=== PATIENT | female | born 1995 | race Caucasian/White ===

== ENCOUNTER 2019-08-18 02:32 | Emergency (ER) | payer OTHER ==
[2019-08-18] MEDS ORDERED: XYLOCAINE 1% HCL 20 ML MDV IJ ONE (02:33)
[2019-08-18 02:39] VITALS: BP 121/77; O2SAT 97
[2019-08-18] MEDS ORDERED: Robitussin AC Syrup Unit Dose Cup PO STA (03:07)
--- NOTE | 2019-08-18 03:13 | ERPHSYRPT ---
- History of Present Illness Time Seen by Provider: 08/18/19 03:10 Source: patient Exam Limitations: no limitations Patient Subjective Stated Complaint: pt states, "I went to [facility] on Thurs and dx with pneumonia. Pt feels worse and noted a cracking/popping sound in her chest". Triage Nursing Assessment: pt ambulated to rm 6, alert and oriented x3, pleasant , cooperative. Mother at bedside. Lungs clear ant and post bilat, no "popping "/crepitis noted in chest with palpation. Pt has prod cough, whitish yellow in color. Heart tones reg, abd soft with active bs x4 quad, nontender. nose bleeds off and on today. Physician History: pt states, "I went to [facility] on Thurs and dx with pneumonia. Pt feels worse and noted a cracking/popping sound in her chest". denies any fever or chills Timing/Duration: day(s) (2-3 days) Cough Quality/Degree: dry cough Possible Cause: no prior episodes Associated Symptoms: chest pain/soreness, cough, sore throat, No shortness of breath International travel in last 2 weeks: No Allergies/Adverse Reactions: dinoprostone [From Cervidil] Allergy (Intermediate, Verified 06/12/15 08:58) Swelling Home Medications: Amoxicillin/Potassium Clav [Amox-Clav 875-125 mg Tablet] 1 tab PO BID 08/18/19 [ History] Duloxetine HCl [Cymbalta] 60 mg PO DAILY 08/18/19 [History] Gabapentin 600 mg PO TID 08/18/19 [History] Hx Tetanus, Diphtheria Vaccination/Date Given: Yes Hx Influenza Vaccination/Date Given: No Hx Pneumococcal Vaccination/Date Given: No Immunizations Up to Date: Yes - Review of Systems Constitutional: No Fever, No Chills Eyes: No Symptoms Ears, Nose, & Throat: No Symptoms Respiratory: Cough, No Dyspnea Cardiac: No Chest Pain, No Edema, No Syncope Abdominal/Gastrointestinal: No Abdominal Pain, No Nausea, No Vomiting, No Diarrhea Genitourinary Symptoms: No Dysuria Musculoskeletal: No Back Pain, No Neck Pain Skin: No Rash Neurological: No Dizziness, No Focal Weakness, No Sensory Changes Psychological: No Symptoms Endocrine: No Symptoms All Other Systems: Reviewed and Negative - Past Medical History Pertinent Past Medical History: Yes Neurological History: Migraines ENT History: No Pertinent History Cardiac History: No Pertinent History Respiratory History: No Pertinent History Endocrine Medical History: No Pertinent History Musculoskeletal History: Fibromyalgia GI Medical History: GERD History: No Pertinent History Psycho-Social History: Anxiety Female Reproductive Disorders: Other Other Medical History: heartburn, pre-eclampsia, elevated liver enzymes. - Past Surgical History Past Surgical History: Yes Neuro Surgical History: No Pertinent History Cardiac: No Pertinent History Respiratory: No Pertinent History Gastrointestinal: No Pertinent History Genitourinary: No Pertinent History Musculoskeletal: Other Female Surgical History: Section Other Surgical History: cubital tunnel release to rt and lt - Social History Smoking Status: Never smoker How long have you smoked: 30 days Exposure to second hand smoke: Yes Drug Use: none Patient Lives Alone: No - Female History Hx Last Menstrual Period: implant Hx Now: No - Nursing Vital Signs Nursing Vital Signs: Initial Vital Signs Temperature 99.5 F 08/18/19 02:36 Pulse Rate 97 H 08/18/19 02:36 Respiratory Rate 17 08/18/19 02:36 Blood Pressure 121/77 08/18/19 02:36 O2 Sat by Pulse Oximetry 97 08/18/19 02:36 Pain Scale Pain Intensity 4 - Physical Exam General Appearance: no apparent distress, alert Eye Exam: PERRL/EOMI, eyes nml inspection Ears, Nose, Throat Exam: normal ENT inspection, TMs normal, pharynx normal, moist mucous membranes, pharyngeal erythema Neck Exam: normal inspection, non-tender, supple, full range of motion Respiratory Exam: wheezing, No respiratory distress Cardiovascular Exam: regular rate/rhythm, normal heart sounds Gastrointestinal/Abdomen Exam: soft, No tenderness Back Exam: normal inspection, No CVA tenderness, No vertebral tenderness Extremity Exam: normal inspection, normal range of motion Neurologic Exam: alert, oriented x 3, cooperative, normal mood/affect, sensation nml, No motor deficits Skin Exam: normal color, warm, dry, No rash Lymphatic Exam: No adenopathy SpO2: 97 - Course Nursing assessment & vital signs reviewed: Yes - Radiology Exams Chest X-ray Interpretation: Reviewed by me (right middle lobe infiltrate) Ordered Tests: Active Orders 24 hr Category Date Time Status CHEST 2 VIEWS (PA AND LAT) Stat Exams 08/18/19 03:07 Ordered CBC W DIFF Stat Lab 08/18/19 03:28 Received CMP Stat Lab 08/18/19 03:28 Received Medication Summary Discontinued Medications Generic Name Dose Route Start Last Admin Trade Name Freq PRN Reason Stop Dose Admin Albuterol/Ipratropium 3 ml 08/18/19 03:34 Duoneb 0.5-3 Mg/3 Ml Neb IH 08/18/19 03:35 STAT ONE Ceftriaxone Sodium 1,000 mg 08/18/19 03:34 Rocephin 1000 Mg Inj IM 08/18/19 03:35 STAT ONE Guaifenesin/Codeine Phosphate 10 ml 08/18/19 03:07 08/18/19 03:21 Robitussin Ac Syrup Unit Dose Cup PO 08/18/19 03:08 10 ml Q4H PRN STA Administration Guaifenesin/Codeine Phosphate Confirm 08/18/19 03:19 Robitussin Ac Syrup Unit Dose Cup Administered 08/18/19 03:20 Dose 10 ml .ROUTE .STK-MED ONE Lab/Rad Data: Laboratory Result Diagrams 08/18/19 03:28 Laboratory Results 08/18/19 Range/Units 03:28 WBC 10.6 H (4.0-10.5) K/mm3 RBC 4.71 (4.1-5.4) M/mm3 Hgb 13.8 (12.0-16.0) gm/dl Hct 41.2 (35-47) % MCV 87.5 (78-100) fl MCH 29.3 (26-32) pg MCHC 33.5 (32-36) g/dl RDW 12.9 (11.5-14.0) % Plt Count 294 (150-450) K/mm3 MPV 9.3 (6-9.5) fl Gran % 64.3 (36.0-66.0) % Eos # (Auto) 0.11 (0-0.5) Absolute Lymphs (auto) 2.55 (1.0-4.6) Absolute Monos (auto) 1.10 (0.0-1.3) Lymphocytes % 24.0 (24.0-44.0) % Monocytes % 10.4 (0.0-12.0) % Eosinophils % 1.0 (0.00-5.0) % Basophils % 0.3 (0.0-0.4) % Absolute Granulocytes 6.83 (1.4-6.9) Basophils # 0.03 (0-0.4) - Progress Progress: improved Air Movement: good Blood Culture(s) Obtained: No Antibiotics given: Yes Counseled pt/family regarding: lab results, diagnosis, need for follow-up, rad results - Departure Departure Disposition: Home Clinical Impression: Pneumonia Qualifiers: Pneumonia type: due to unspecified organism Laterality: right Lung location: middle lobe of lung Qualified Code(s): J18.9 - Pneumonia, unspecified organism Condition: Stable Critical Care Time: No Referrals: BRIAN LAMBERT [Primary Care Provider] - Instructions: Pneumonia, Adult (DC), Cough, Adult (DC) Additional Instructions: continue and finish amoxicillin. follow up with your primary physician. Discharge/Care Plan OUSMANE SARMIENTO was seen on 08/18/19 in the Emergency Room. The patient was counseled regarding Diagnosis,Lab results, Imaging studies, need for follow up and when to return to the Emergency Room. Prescriptions given: Discharge Note I have spoken with the patient and/or caregivers. I have explained the patient' s condition, diagnosis and treatment plan based on the information available to me at this time. I have answered the patient's and/or caregiver's questions and addressed any concerns. The patient and/or caregivers have as good understanding of the patient's diagnosis, condition and treatment plan as can be expected at this point. The vital signs have been stable. The patient's condition is stable and appropriate for discharge from the emergency department. The patient will pursue further outpatient evaluation with the primary care physician or other designated or consulting physician as outlined in the discharge instructions. The patient and/or caregivers are agreeable to this plan of care and follow-up instructions have been explained in detail. The patient and/or caregivers have received these instruction. The patient/and or caregivers are aware that any significant change in condition or worsening of symptoms should prompt an immediate return to this or the closest emergency department or call 911. Prescriptions: Guaifenesin/Codeine Phosphate [Robitussin AC Syrup] 5 ml PO QID #100 ml
[2019-08-18] MEDS ORDERED: Robitussin AC Syrup Unit Dose Cup ONE (03:19)
[2019-08-18 03:30] LABS: Absolute Neutrophil Ct (ANC) 6.83 (1.4-6.9); BASOPHIL % 0.3 % (0.0-0.4); Basophil (Absolute #) 0.03 (0-0.4); Eosinophil (Absolute #) 0.11 (0-0.5); Hematocrit 41.2 % (35-47); Hemoglobin 13.8 gm/dl (12.0-16.0); Lymphocyte (Absolute #) 2.55 (1.0-4.6); Mean Cell Volume 87.5 fl (78-100); Mean Corpuscular Hemoglobin 29.3 pg (26-32); Mean Corpuscular Hgb Concent. 33.5 g/dl (32-36); Mean Platelet Volume 9.3 fl (6-9.5); Monocytes % 10.4 % (0.0-12.0); Neutrophil % 64.3 % (36.0-66.0); Platelet Count 294 K/mm3 (150-450); Red Blood Count 4.71 M/mm3 (4.1-5.4); Red Cell Distribution Width 12.9 % (11.5-14.0); White Blood Count 10.6 K/mm3 (4.0-10.5)
[2019-08-18] MEDS ORDERED: Rocephin 1000 MG INJ IM ONE (03:34)
[2019-08-18] MEDS ORDERED: DUONEB 0.5-3 MG/3 ml Neb IH ONE ×2 (03:34→04:00)
[2019-08-18] MEDS ORDERED: Rocephin 1000 MG INJ ONE (03:38)
[2019-08-18 03:42] LABS: ALBUMIN 4.4 g/dL (3.5-5.0); ALKALINE PHOSPHATASE 55 U/L (38-126); ANION GAP 13.7 MEQ/L (5-15); BLOOD UREA NITROGEN 11 mg/dL (7-17); CHLORIDE 103 mmol/L (98-107); Calcium 10.1 mg/dL (8.4-10.2); Carbon Dioxide 29 mmol/L (22-30); Glucose 100 mg/dL (74-106); Potassium 4.3 mmol/L (3.5-5.1); SGOT/AST 28 U/L (14-36); SGPT/ALT 31 U/L (0-35); SODIUM 141 mmol/L (137-145); Total Protein 8.3 g/dL (6.3-8.2)
[2019-08-18 04:07] VITALS: PULSE 71
--- NOTE | 2019-08-18 09:13 | XRAY ---
Indication: Cough. Sore throat. Comparison: None. PA/lateral chest demonstrates subtle right middle lobe infiltrate. Remaining heart, lungs, and bony thorax normal with incidental tiny calcified granulomas.
== END 2019-08-18 04:18 | disposition home or self-care (01) ==
LOC: ED 02:32
DX: J18.9 Pneumonia, unspecified organism (principal)
CPT/HCPCS: 36415; 71046; 80053; 85025; 87651; 94640; 96372; 99284; J0696; A9270-GY